=== PATIENT | female | born 1980 | race Caucasian/White ===

== ENCOUNTER 2022-04-03 09:51 | Emergency (ER) | payer OTHER ==
[2022-04-03] MEDS ORDERED: Ketorolac 30 MG/ML SDV IM ONE (10:36)
== END 2022-04-03 11:53 | disposition home or self-care (01) ==
LOC: JP.ED 09:51
DX: S82.65XA Nondisplaced fracture of lateral malleolus of left fibula, initial encounter for closed fracture (principal); Z88.0 Allergy status to penicillin; Z88.2 Allergy status to sulfonamides; Z79.899 Other long term (current) drug therapy; W00.9XXA Unspecified fall due to ice and snow, initial encounter
CPT/HCPCS: 73610; 96372; 99283; J1885